=== PATIENT | female | born 1995 | race Caucasian/White ===

== ENCOUNTER 2018-07-07 14:43 | Emergency (ER) | payer MEDICAID ==
[~2018-07-07] VITALS: Ht 170.2 cm; Wt 92.0 kg
[~2018-07-07 14:43] MED LIST: FLUC150T PO
[2018-07-07] MEDS ORDERED: FLUT16SP2 BOTHNARES (16:24)
[2018-07-07] MEDS ORDERED: PSEU-259 PO (16:24)
[2018-07-07] MEDS ORDERED: AMOX-419 PO (16:24)
== END 2018-07-07 16:47 | disposition home or self-care (01) ==
LOC: ER 14:44
DX: J01.10 Acute frontal sinusitis, unspecified (principal); J01.00 Acute maxillary sinusitis, unspecified; B96.89 Other specified bacterial agents as the cause of diseases classified elsewhere
CPT/HCPCS: 99283